=== PATIENT | female | born 1990 | race Caucasian/White ===

== ENCOUNTER 2017-04-28 21:27 | Emergency (ER) | payer BC, MEDICAID ==
[2017-04-28 23:29] LABS: APPEARANCE,URINE CLEAR; BILIRUBIN,URINE NEGATIVE (NEGATIVE); GLUCOSE, URINE NEGATIVE (NEGATIVE); KETONES,URINE NEGATIVE (NEGATIVE); LEUKOCYTE ESTERASE,URINE TRACE (NEGATIVE); NITRITE,URINE NEGATIVE (NEGATIVE); PROTEIN,URINE NEGATIVE (NEGATIVE); URINE SPECIFIC GRAVITY 1.011; UROBILINOGEN,URINE NEGATIVE mg/dL (<2.0)
[2017-04-28] MEDS ORDERED: KETOROLAC TROMETHAMINE INJ/PF 30 MG/1 ML SDV IM ONE (23:38)
--- NOTE | 2017-04-28 23:40 | ER Document Report ---
ED General - General Chief Complaint: Pelvic Pain Stated Complaint: ABDOMINAL PAIN Time Seen by Provider: 04/28/17 23:32 Notes: Patient is 27-year-old female presents with complaint of left ovary pain. She has left lower quadrant pain her abdomen radiates to her back. She has had this pain many times in the past and says it feels exactly like her ovarian cyst pain. She says she gets it frequently. She has had it on and off since she was 15 years old. Pain started earlier today around 4 PM. No fevers. No vomiting. No abnormal vaginal discharge or bleeding. She says she has had some mild loose stools. No watery stools. No blood in her stool. No fevers. No other complaints at this time. She says she is to follow with her cement mixer driver however she lost her insurance and therefore has not seen one in a while. TRAVEL OUTSIDE OF THE [place] IN LAST 30 DAYS: No - Related Data Allergies/Adverse Reactions: cefaclor [From [facility]] Allergy (Verified 04/21/15 10:39) Penicillins Allergy (Verified 04/21/15 10:38) Past Medical History - Social History Smoking Status: Unknown if Ever Smoked Frequency of alcohol use: None Drug Abuse: None Family History: Reviewed & Not Pertinent. denies: Arthritis, CAD, CVA, DM, Hyperlipidemia, Hypertension, Malignancy, Thyroid Disfunction Patient has suicidal ideation: No Patient has homicidal ideation: No Renal/ Medical History: Reports: Hx Ovarian Cysts - PCO S. Denies: Hx Peritoneal Dialysis Past Surgical History: Reports: Hx Tonsillectomy Review of Systems - Review of Systems Notes: My Normal Review Basic REVIEW OF SYSTEMS: CONSTITUTIONAL : Denies fever, chills, or sweats. Denies recent illness. RESPIRATORY: Denies cough, cold, or chest congestion. Denies shortness of breath, difficulty breathing, or wheezing. GASTROINTESTINAL: Left lower quadrant abdominal pain. Denies nausea, vomiting, or diarrhea. Denies constipation. Last BM: GENITOURINARY: Denies difficulty urinating, painful urination, burning, frequency, or blood in urine. FEMALE GENITOURINARY: Denies vaginal bleeding, abnormal or irregular periods. MUSCULOSKELETAL: Denies neck or back pain or joint pain or swelling. SKIN: Denies rash or skin lesions. NEUROLOGICAL: Denies altered mental status or loss of consciousness. Denies headache. Denies weakness or paralysis or loss of use of either side. Denies problems with gait or speech. Denies sensory or motor loss. ALL OTHER SYSTEMS REVIEWED AND NEGATIVE. Physical Exam - Vital signs Vitals: Temp Pulse Resp BP Pulse Ox 98 F 72 16 121/78 98 04/28/17 22:26 04/28/17 22:26 04/28/17 22:26 04/28/17 22:26 04/28/17 22:26 - Notes Notes: General Appearance: Well nourished, alert, cooperative, no acute distress, no obvious discomfort. Well-appearing. Vitals: reviewed, See vital signs table. Head: no swelling or tenderness to the head Eyes: PERRL, EOMI, Conjuctiva clear Mouth: No decreasd moisture Neck: Supple, no neck tenderness Lungs: No wheezing, No rales, No rhonci, No accessory muscle use, good air exchange bilaterally. Heart: Normal rate, Regular rythm, No murmur, no rub Abdomen: Normal BS, soft, No rigidity, left lower quadrant abdominal tenderness palpation, No guarding, Extremities: strength 5/5 in all extremities, good pulses in all extremities, no swelling or tenderness in the extremities, no edema. Skin: warm, dry, appropriate color, no rash Neuro: speech clear, oriented x 3, normal affect, responds appropriately to questions. Course - Re-evaluation Re-evalutation: 04/29/17 01:44 Patient is feeling much improved after pain medicine. They could not actually visualize the left ovary due to some overlying bowel gas. I do not suspect torsion and that the patient is not having intractable pain, she has had no vomiting, and the pain feels exactly like her previous typical ovarian cyst pain. Also patient never appeared to be in severe pain. I informed the patient that we will discharge home by encouraged her follow-up closely with her cement mixer driver for reevaluation. Informed her she should return to ER immediately if she has recurrent worsening pain, intractable pain, any vomiting , or if she has further concerns. Patient did mention some loose stools however I think diverticulitis is unlikely being that she is only 27 years old and has no previous history of any such thing and she has no fevers and her abdomen is very benign and minimally tender to palpation on exam. Dictation of this chart was performed using voice recognition software; therefore, there may be some unintended grammatical errors. - Vital Signs Vital signs: Temp Pulse Resp BP Pulse Ox 98 F 72 16 121/78 98 04/28/17 22:26 04/28/17 22:26 04/28/17 22:26 04/28/17 22:26 04/28/17 22:26 - Laboratory Laboratory results interpreted by me: 04/28/17 22:45 Ur Leukocyte Esterase TRACE H Discharge - Discharge Clinical Impression: Abdominal pain Qualifiers: Abdominal location: left lower quadrant Qualified Code(s): R10.32 - Left lower quadrant pain Condition: Good Disposition: HOME, SELF-CARE Additional Instructions: Please return to the ER immediately if you have wrosening pain, vomiting, fevers , watery diarrhea, or blood in your stool. Please follow up with Dr. Busby, Telephone Station Installer, for close follow up and continued workup due to your history of PCOS and recurrent pain from ovarian cysts. Do not take Motrin, Ibuprofen, Aleve , Naprosyn, or Aspirin when taking the prescribed medication Prescriptions: Ketorolac Tromethamine [Toradol 10 mg Tablet] 10 mg PO Q8HP PRN #12 tablet PRN Reason: Forms: Return to Work Referrals: TORRES BUSBY MD [ACTIVE STAFF] - Follow up in 3-5 days
--- NOTE | 2017-04-29 01:15 | RADIOLOGY REPORT (SQ) ---
EXAM DESCRIPTION: U/S NON OB PEL W/DOPPLER COMPLETED DATE/TIME: 04/29/2017 12:54 am REASON FOR STUDY: left adnexal pain, Hx ovarian cysts COMPARISON: Pelvic ultrasound 04/02/2011 TECHNIQUE: Grayscale images acquired of the pelvis via transvaginal approach and recorded on PACS. A dditional selected color Doppler and spectral images recorded. LIMITATIONS: Overlying bowel gas. FINDINGS: UTERUS: Measures 7.4 x 3.3 x 5.2 cm. No focal myometrial mass was seen. ENDOMETRIAL STRIPE: Measures 2.1 mm in double wall thickness. Intrauterine device is seen in the end ometrial canal. CERVIX: Measures 2.3 cm in length. RIGHT OVARY: Measures 3.6 x 2.3 x 2.2 cm. Flow by Doppler was shown to the right ovary. Small folli cles are noted. LEFT OVARY: Not visualized due to overlying bowel gas. FREE FLUID: None noted. IMPRESSION: Nonvisualized left ovary. Otherwise, unremarkable exam. TECHNICAL DOCUMENTATION: JOB ID: [id number] 2010 [employer]- All Rights Reserved
[2017-04-29 01:56] VITALS: BP 109/64
== END 2017-04-29 01:58 | disposition home or self-care (01) ==
LOC: ER 21:27
DX: R10.32 Left lower quadrant pain (principal); R10.2 Pelvic and perineal pain; M54.9 Dorsalgia, unspecified
CPT/HCPCS: 99284; 96372; 81025; 81001; 76856; 93976; J1885

== ENCOUNTER 2018-11-09 00:28 | Emergency (ER) | payer MEDICAID ==
[2018-11-09 00:54] VITALS: BP 149/78
[2018-11-09] MEDS ORDERED: IBUPROFEN 800 MG TABLET PO ONE (01:46)
[2018-11-09] MEDS ORDERED: CLINDAMYCIN HCL 150 MG CAPSULE PO ONE ×2 (01:46)
--- NOTE | 2018-11-09 01:59 | ER Document Report ---
HPI - HPI Patient complains to provider of: Toothache Time Seen by Provider: 11/09/18 01:46 Pain Level: 4 Context: She is a 28-year-old female presents to the emergency department for a toothache. Patient states this morning she bit into something hard and feels as though she may have broken her tooth. Patient states she noticed some redness and swelling around her gumline which presents her to the emergency room. Patient does exhibit slight swelling to the right lower jaw. Patient states she takes Suboxone daily, allergies to penicillin - REPRODUCTIVE LMP: 08/2018 Reproductive: DENIES: : Past Medical History - General Information source: Patient - Social History Smoking Status: Current Every Day Smoker Family History: Reviewed & Not Pertinent. denies: Arthritis, CAD, CVA, DM, Hyperlipidemia, Hypertension, Malignancy, Thyroid Disfunction Renal/ Medical History: Reports: Hx Ovarian Cysts - PCO S. Denies: Hx Peritoneal Dialysis Past Surgical History: Reports: Hx Gynecologic Surgery - D&C, Hx Tonsillectomy Vertical Provider Document - CONSTITUTIONAL Agree With Documented VS: Yes Notes: GENERAL: Alert, interacts well. No acute distress. HEAD: Normocephalic, atraumatic. EYES: Pupils equal, round, and reactive to light. Extraocular movements intact. ENT: Oral mucosa moist, tongue midline. Dentition is in poor repair, multiple dental caries throughout, multiple missing teeth. Tooth in question is #31, obviously fractured with decay noted. Gums do appear erythematous with a slight area of induration, no fluctuance noted. No Andrea's angina noted NECK: Full range of motion. Supple. Trachea midline. No lymphadenopathy appreciated LUNGS: Clear to auscultation bilaterally, no wheezes, rales, or rhonchi. No respiratory distress. HEART: Regular rate and rhythm. No murmur ABDOMEN: Soft, non-tender. Non-distended. Bowel sounds present in all 4 quadrants. EXTREMITIES: Moves all 4 extremities spontaneously. No edema, normal radial and dorsalis pedis pulses bilaterally. No cyanosis. BACK: no cervical, thoracic, lumbar midline tenderness. No saddle anesthesia, normal distal neurovascular exam. NEUROLOGICAL: Alert and oriented x3. Normal speech. cranial nerves II through XII grossly intact PSYCH: Normal affect, normal mood. SKIN: Warm, dry, normal turgor. No rashes or lesions noted. - INFECTION CONTROL TRAVEL OUTSIDE OF THE [place] IN LAST 30 DAYS: No Course - Re-evaluation Re-evalutation: 11/09/18 01:57 Patient was given a dose of clindamycin in the emergency room. Discussed continued use of antibiotics and following up with a dental [facility] eri maulik. Discussed close return precautions, patient afebrile, non-tachycardic, stable for discharge. - Vital Signs Vital signs: Temp Pulse Resp BP Pulse Ox 98.4 F 73 16 149/78 H 100 11/09/18 00:53 11/09/18 00:53 11/09/18 00:53 11/09/18 00:53 11/09/18 00:53 Discharge - Discharge Clinical Impression: Toothache, Dental caries Condition: Stable Disposition: HOME, SELF-CARE Instructions: Clindamycin ([facility]), [facility], Toothache ([facility]) Additional Instructions: As we discussed you have been seen and treated in the emergency department for a tooth infection. Please make sure taking antibiotics as prescribed. Please also make sure you are taking [id number] Tylenol alternated with Motrin. Please make sure you follow-up with the [facility] or your dentist of choice. Please return to the emergency room should you have any other concern symptoms. Prescriptions: Clindamycin HCl [Cleocin 150 mg Capsule] 450 mg PO Q8 7 Days capsule
== END 2018-11-09 02:33 | disposition home or self-care (01) ==
LOC: ER 00:28
DX: K08.89 Other specified disorders of teeth and supporting structures (principal); K02.9 Dental caries, unspecified; M79.89 Other specified soft tissue disorders; R68.84 Jaw pain; F17.200 Nicotine dependence, unspecified, uncomplicated; Z79.899 Other long term (current) drug therapy
CPT/HCPCS: 99282; J3490 ×2

== ENCOUNTER 2019-08-17 03:31 | Emergency (ER) | payer MEDICAID ==
[2019-08-17 04:13] VITALS: BP 136/65
[2019-08-17] MEDS ORDERED: CLINDAMYCIN HCL 150 MG CAPSULE PO ONE (04:17)
[2019-08-17] MEDS ORDERED: LIDOCAINE 2% VISCOUS SOLN 15 ML UDCUP PO ONE (04:17)
--- NOTE | 2019-08-17 04:22 | ER Document Report ---
HPI - HPI Time Seen by Provider: 08/17/19 03:33 Pain Level: 4 Notes: Patient is a 29-year-old female approx 19.5 weeks who presents to the ED complaining of left lower dental pain #17-18 x2 days. She has not noticed any obvious abscess or purulent discharge. Patient states that she is still able to eat and drink, but does have a decreased p.o. intake due to the pain. She has tried some [id number] meds with minimal relief. No other concerns or complaints. Pt is schedule with a dentist in 2 weeks. Denies any headache, fever, head injury, neck pain, hoarseness, drooling, URI, sore throat, chest pain, palpitations, syncope, cough, shortness of breath, wheeze, dyspnea, abdominal pain, nausea/vomiting/diarrhea, urinary retention, dysuria, hematuria, or rash. - ROS Systems Reviewed and Negative: Yes All other systems reviewed and negative - REPRODUCTIVE Reproductive: REPORTS: : Past Medical History - Social History Smoking Status: Current Every Day Smoker Chew tobacco use (# tins/day): No Frequency of alcohol use: None Drug Abuse: None Family History: Reviewed & Not Pertinent. denies: Arthritis, CAD, CVA, DM, Hyperlipidemia, Hypertension, Malignancy, Thyroid Disfunction Patient has suicidal ideation: No Patient has homicidal ideation: No Renal/ Medical History: Reports: Hx Ovarian Cysts - PCO S. Denies: Hx Peritoneal Dialysis Past Surgical History: Reports: Hx Gynecologic Surgery - D&C, Hx Tonsillectomy Vertical Provider Document - CONSTITUTIONAL Agree With Documented VS: Yes Notes: PHYSICAL EXAMINATION: GENERAL: Well-appearing, well-nourished and in no acute distress. HEAD: Atraumatic, normocephalic. EYES: Pupils equal round and reactive to light, extraocular movements intact, sclera anicteric, conjunctiva are normal. ENT: Nares patent and without discharge. oropharynx clear without exudates. No tonsilar hypertrophy or erythema. Moist mucous membranes. No sinus tenderness. Uvula midline. No palatine shift. No tongue protrusion. No respiratory compromise. Mouth: Poor dentition. + moderate decay and mild gingivitis. No obvious abscess or discharge noted. No facial swelling. + tenderness to tooth #17-18. NECK: Normal range of motion, supple without lymphadenopathy. No rigidity/meningismus. LUNGS: Breath sounds clear to auscultation bilaterally and equal. No wheezes rales or rhonchi. HEART: Regular rate and rhythm without murmurs, rubs, gallops. NEUROLOGICAL: Cranial nerves grossly intact. Normal speech, normal gait. Normal sensory, motor exams PSYCH: Normal mood, normal affect. SKIN: Warm, Dry, normal turgor, no rashes or lesions noted. - INFECTION CONTROL TRAVEL OUTSIDE OF THE [place] IN LAST 30 DAYS: No Course - Re-evaluation Re-evalutation: 08/17/19 04:20 Patient is an afebrile, well-hydrated, 29-year-old female who presents to the ED with dental pain, suspect nerve root etiology versus infection. Vitals are acceptable. PE is otherwise unremarkable. No I&D, labs, or imaging warranted at this time based on H&P. Viscous lidocaine dispensed today. I will send her home with a prescription for cleocin. Low suspicion for any meningitis, sepsis, peritonsillar/pharyngeal abscess, respiratory compromise, Andrea's, temporal arteritis, or other emergent systemic condition at this time. Patient is aware this condition can change from initial presentation and she needs to monitor symptoms closely. Conservative measures otherwise for symptoms. Call to schedule an appointment with a dentist for further evaluation and management. Recheck with your PCM this week as well. Return to the ED with any worsening/concerning symptoms otherwise as reviewed in discharge. Patient is in agreement. - Vital Signs Vital signs: Temp Pulse Resp BP Pulse Ox 98.2 F 69 17 136/65 H 97 08/17/19 04:09 08/17/19 04:09 08/17/19 04:09 08/17/19 04:09 08/17/19 04:09 Discharge - Discharge Clinical Impression: Pain, dental Condition: Stable Disposition: HOME, SELF-CARE Instructions: Clindamycin ([facility]), Toothache ([facility]) Additional Instructions: [facility] and floss twice daily Maintain fluid intake Take antibiotics as directed Mouthwash, salt water gargles, peroxide rinse as needed Tylenol as needed Recheck with PCM this week Keep appointment with dentist as scheduled Return to the ED with any worsening symptoms and/or development of fever, headache, facial swelling, swelling of lips/tongue/throat, trouble swallowing, drooling, hoarseness, neck pain/stiffness, chest pain, palpitations, syncope, shortness of breath, trouble breathing, abdominal pain, n/v/d, numbness/tingling, or other worsening symptoms that are concerning to you. Prescriptions: Clindamycin HCl 300 mg PO TID #30 capsule Forms: Elevated Blood Pressure Referrals: [facility] [Provider Group] - Follow up as needed
== END 2019-08-17 04:40 | disposition home or self-care (01) ==
LOC: ER 03:31
DX: O26.92 Pregnancy related conditions, unspecified, second trimester (principal); K08.9 Disorder of teeth and supporting structures, unspecified; O99.332 Smoking (tobacco) complicating pregnancy, second trimester; Z3A.19 19 weeks gestation of pregnancy
CPT/HCPCS: J3490 ×2

== ENCOUNTER 2020-01-13 18:01 | Inpatient (IN) | payer MEDICAID ==
[2020-01-13] MEDS ORDERED: DINOPROSTONE 10 MG VAGINAL INSERT.SR PV PRN (18:09)
[2020-01-13] MEDS ORDERED: OXYTOCIN/0.9 % SODIUM CHLORIDE 30 UNIT/500 ML RTUINJ IV PRN (18:09)
[2020-01-13] MEDS ORDERED: RINGERS SOLUTION,LACTATED 1,000 ML IV ONE (18:10)
[2020-01-13] MEDS ORDERED: VANCOMYCIN HCL 1,000 MG in DEXTROSE 5%-WATER 250 ML IV SCH (18:15)
[2020-01-13] MEDS ORDERED: OXYTOCIN 10 UNIT/ML VIAL ONE (18:40)
[2020-01-13] MEDS ORDERED: MISOPROSTOL 0.2 MG TABLET ONE (18:41)
[2020-01-13] MEDS ORDERED: OXYTOCIN/0.9 % SODIUM CHLORIDE 30 UNIT/500 ML RTUINJ ONE (18:41)
[2020-01-13] MEDS ORDERED: DINOPROSTONE 10 MG VAGINAL INSERT.SR ONE (18:41)
[2020-01-13] MEDS ORDERED: LIDOCAINE 1% INJ-PF (10 MG/ML) 30 ML SDV ONE (18:41)
[2020-01-13 18:46] LABS: URINE AMPHETAMINES SCREEN NEGATIVE; URINE BARBITURATES SCREEN NEGATIVE; URINE BENZODIAZEPINES SCREEN NEGATIVE; URINE COCAINE SCREEN NEGATIVE; URINE MARIJUANA (THC) SCREEN NEGATIVE; URINE METHADONE SCREEN NEGATIVE; URINE PHENCYCLIDINE SCREEN NEGATIVE
[2020-01-13] MEDS ORDERED: MISOPROSTOL 0.1 MG TABLET PV ONE (19:00)
--- NOTE | 2020-01-13 19:20 | Admission Physical ---
Datetime Report Generated by CPN: 01/13/2020 19:20 CURRENT ADMISSION Chief Complaint: Scheduled Induction of Labor Chief Complaint Other: IOL d/t 41.0 wks EGA -Post dates Good FM. NO regular ctx or VB Indication for Induction: Post Dates Admit Impression : Postterm, Intrauterine Admit Plan: Admit to Unit; Initiate Labor Induction Protocol ALLERGIES Medication Allergies: Yes Medication Allergies: Penicillins (01/13/2020); cefaclor (01/13/2020) Latex: No Latex Allergies OBSTETRICAL HISTORY EDC: 01/06/2020 00:00 : 3 Para: 2 Term: 1 : 1 SAB: 0 IAB: 0 Ectopic: 0 Livin Cesareans: 0 VBACs: 0 Multiple Births: 0 Gestational Diabetes: No Rh Sensitization: No Incompetent Cervix: No DAVID: No Infertility: No ART Treatment: No Uterine Anomaly: No IUGR: No Hx Previous C/S: No Macrosomia: No Hx Loss/Stillborn: No PIH: No Hx : No Placenta Previa/Abruption: No Depression/PP Depression: No PTL/PROM: No Post Hemorrhage: No Current Procedures: Ultrasound; NST Obstetrical History Comments: G1 - 2013 - G2 - 2014 - Full Term G3 - Current SEE RECORDS Alcohol: No Marijuana : No Cocaine: No Other Illicit Drugs: No Cigarettes: Current Everyday Smoker. [id number] MEDICAL HISTORY Diabetes: No Blood Transfusion: No Pulmonary Disease (Asthma, TB): No Breast Disease: No Hypertension: No Food Services Coordinator Surgery: No Heart Disease: No Hosp/Surgery: Yes Autoimmune Disorder: No Anesthetic Complications: No Kidney Disease: No Abnormal Pap Smear: No Neuro/Epilepsy: No Psychiatric Disorders: No Other Medical Diseases: No Hepatitis/Liver Disease: No Significant Family History: No Varicosities/Phlebitis: No Trauma/Violence : No Thyroid Dysfunction: No Medical History Comments: Laproscopy, D_C INFECTIOUS HISTORY Gonorrhea: No Genital Herpes: No Chlamydia: No Tuberculosis: No Syphilis: No Hepatitis: No HIV/AIDS Exposure: No Rash or Viral Illness: No HPV: No PHYSICAL EXAM General: Normal HEENT: Normal Neurologic: Normal Thyroid: Normal Heart: Normal Lungs: Normal Breast: Normal Back: Normal Abdomen: Normal Genitourinary Exam: Normal Extremities: Normal DTRs: Normal Pelvic Type: Adequate Vital Signs: Reviewed; Within Normal Limits VAGINAL EXAM Dilatation: 2 Effacement: 50 Station: -2 Contraction Comments: no regular contractions MEMBRANES Membranes: Intact FETUS A EGA: 41.0 Monitoring: External US FHR- Baseline: 120 Variability: Moderate 6-25bpm Accelerations: 15X15 Decelerations: None FHR Category: Category I Presentation: Vertex Admit Comment: at 41.0 weeks EGA for IOL due post dates -Admit to LDR -CEFM and toco -NPO and IVFs; LR at 125cc/hr after 1 liter bolus of LR -GBS pos and PCN allergic: Vancomycin -Hx of two prior , anticipate -Desires epidural when indicated for pain: substance dependent on Subutex 8mg BID PLANS FOR LABOR AND DELIVERY Labor and Delivery: None Pain Management: Epidural Feeding Preference: Formula Benefit of Breast Feed Discussed: Yes Circumcision: N/A INFORMED CONSENT Informed Consent Obtained: Vaginal Delivery; Risks, Benefits and Alternatives Discussed Signature: with User ID: Jennifer : with User ID: Jennifer
[2020-01-13 19:22] LABS: ABSOLUTE EOSINOPHILS # (AUTO) 0.1 10^3/uL (0.0-0.6); ABSOLUTE LYMPHOCYTES (AUTO) 1.8 10^3/uL (0.5-4.7); ABSOLUTE MONOCYTES (AUTO) 0.7 10^3/uL (0.1-1.4); ABSOLUTE NEUT (AUTO) 10.6 10^3/uL (1.7-8.2); BASOPHILS % (AUTO) 0.2 % (0-2); EOSINOPHILS % (AUTO) 0.9 % (0-6); HEMATOCRIT 30.3 % (36.0-47.0); HEMOGLOBIN 10.5 g/dL (12.0-15.5); LYMPHOCYTES % (AUTO) 13.4 % (13-45); MEAN CORPUSCULAR HEMOGLOBIN 30.8 pg (27.0-33.4); MEAN CORPUSCULAR HGB CONC 34.6 g/dL (32.0-36.0); MEAN CORPUSCULAR VOLUME 89 fl (80-97); MONOCYTES % (AUTO) 5.6 % (3-13); PLATELET COUNT 174 10^3/uL (150-450); RED CELL DISTRIBUTION WIDTH 13.1 % (11.5-14.0); SEGMENTED NEUTROPHILS % (AUTO) 79.9 % (42-78); TOTAL CELLS COUNTED % (AUTO) 100 %; WHITE BLOOD COUNT 13.3 10^3/uL (4.0-10.5)
[2020-01-13] MEDS ORDERED: MISOPROSTOL 0.1 MG TABLET ONE (19:25)
[2020-01-13 19:39] LABS: APPEARANCE,URINE CLOUDY; BILIRUBIN,URINE NEGATIVE (NEGATIVE); COLOR,URINE AMBER; GLUCOSE, URINE NEGATIVE (NEGATIVE); KETONES,URINE NEGATIVE (NEGATIVE); LEUKOCYTE ESTERASE,URINE NEGATIVE (NEGATIVE); NITRITE,URINE NEGATIVE (NEGATIVE); PROTEIN,URINE 30 mg/dL (NEGATIVE); URINE SPECIFIC GRAVITY 1.019
[2020-01-13] MEDS: VANCOMYCIN HCL INJ 1000 MG VIAL IV SCH (19:49)
[2020-01-14] MEDS ORDERED: VANCOMYCIN HCL 1,000 MG in DEXTROSE 5%-WATER 250 ML IV SCH ×2
[2020-01-14] MEDS ORDERED: NALBUPHINE HCL INJ 10 MG/1 ML AMPULE INJ ONE (03:36)
[2020-01-14] MEDS ORDERED: PROMETHAZINE HCL INJ 25 MG/1 ML VIAL IV ONE (03:37)
[2020-01-14] MEDS ORDERED: NALBUPHINE HCL INJ 10 MG/1 ML AMPULE ONE (03:39)
[2020-01-14] MEDS ORDERED: PROMETHAZINE HCL INJ 25 MG/1 ML VIAL ONE (03:39)
[2020-01-14] MEDS ORDERED: EPHEDRINE SULFATE INJ 50 MG/1 ML AMPULE ONE (05:07)
[2020-01-14] MEDS ORDERED: FENTANYL CITRATE INJ/PF 100 MCG/2 ML AMPUL ONE (05:08)
[2020-01-14] MEDS ORDERED: BUPIVACAINE HCL 0.25 % INJ/PF (2.5 MG/1 ML) 30 ML VIAL ONE (05:08)
[2020-01-14] MEDS ORDERED: FENTANYL/BUPIVACAINE/NS/PF 0 MCG/0 ML RTUINJ EPI ONE (05:08)
[2020-01-14] MEDS ORDERED: GLYCERIN/WITCH HAZEL LEAF 1 EACH MED..WIPE TP PRN (06:46)
[2020-01-14] MEDS ORDERED: ACETAMINOPHEN 650 MG SUPP.RECT PR PRN (06:46)
[2020-01-14] MEDS ORDERED: DIPHENHYDRAMINE HCL 25 MG CAPSULE PO PRN (06:46)
[2020-01-14] MEDS ORDERED: MEASLES,MUMPS&RUBELLA VACC/PF 0.5 ML VIAL SUBCUT PRN (06:46)
[2020-01-14] MEDS ORDERED: OXYTOCIN/0.9 % SODIUM CHLORIDE 30 UNIT/500 ML RTUINJ IV PRN (06:46)
[2020-01-14] MEDS ORDERED: ACETAMINOPHEN WITH CODEINE #3 TABLET PO PRN ×2 (06:46)
[2020-01-14] MEDS ORDERED: PROMETHAZINE HCL 25 MG TABLET PO PRN (06:46)
[2020-01-14] MEDS ORDERED: PROMETHAZINE HCL 25 MG SUPP.RECT PR PRN (06:46)
[2020-01-14] MEDS ORDERED: NA PHOS,M-B/NA PHOS,DI-BA (ADULT) 133 ML ENEMA PR PRN (06:46)
[2020-01-14] MEDS ORDERED: PROMETHAZINE HCL INJ 25 MG/1 ML VIAL IV PRN (06:46)
[2020-01-14] MEDS ORDERED: DIPH/PERTUSS(ACELL)/TETANUS VAC/PF 0.5 ML SYR (>=10YO) IM PRN (06:46)
[2020-01-14] MEDS ORDERED: ZOLPIDEM TARTRATE 5 MG TABLET PO PRN (06:46)
[2020-01-14] MEDS ORDERED: MAGNESIUM HYDROXIDE SUSP 30 ML UDCUP PO PRN (06:46)
[2020-01-14] MEDS ORDERED: PSEUDOEPHEDRINE HCL 30 MG TABLET PO PRN (06:46)
[2020-01-14] MEDS ORDERED: BENZOCAINE/MENTHOL AEROSOL SPRAY 56 ML TOP PRN (06:46)
[2020-01-14] MEDS ORDERED: DIBUCAINE 1% OINTMENT 28 GM TP PRN (06:46)
--- NOTE | 2020-01-14 07:15 | Delivery Summary ---
Del Sum A-C Datetime Report Generated by CPN: 01/14/2020 07:15 DELIVERY PERSONNEL DELIVERY PERSONNEL: [id number] Delivery Doctor:: Ana Black MD Labor and Delivery Nurse:: Carter Miranda RNcanvas goods fabricator Nurse:: Ban Younger RN Percussion Welding Machine Operator:: Monserrat Pritchett RN [place] Gatherer/PATTERN DRUM MAKER: Katia Patricia, ST MATERNAL INFORMATION Delivery Anesthesia: Epidural Medications After Delivery: Pitocin 30 Units in 500ml NS/D5W Estimated Blood Loss (ml): 200 Delivery QBL: 200 Maternal Complications: None Provider Comments: Called to patients room for delivery as she was complete and +3 with urge to push. Pushed through one contraction and viable female was delivered from vertex presention over an intact perineum. Had nuchal x2 that was delivered through. Cord clamping delayed for 30 seconds as was vigorous. After cord clamping infant was placed skin to skin with Mother. Both and Mother stable. LABOR SUMMARY EDC: 01/06/2020 00:00 No. Babies in Womb: 1 Attempted: No Labor Anesthesia: Epidural LABOR INFORMATION Reason for Induction: Post Dates Onset of Labor: 01/14/2020 05:37 Complete Dilatation: 01/14/2020 06:06 Cervical Ripening Agents: Cytotec @ Oxytocin: Induction Group B Beta Strep: positive Antibiotics # of Doses: 1 Antibiotics Time of Last Dose: 1948 Name of Antibiotic Given: Vancomycin Steroids Given: None Reason Steroids Not Administered: Not Applicable MEMBRANES Membranes Rupture Method: Spontaneous Rupture of Membranes: 01/14/2020 05:02 Length of Rupture (hr): 1.13 Amniotic Fluid Color: Clear Amniotic Fluid Amount: Scant Amniotic Fluid Odor: Normal STAGES OF LABOR Stage 1 hr: 0 Stage 1 min: 29 Stage 2 hr: 0 Stage 2 min: 4 Stage 3 hr: 0 Stage 3 min: 7 Total Time in Labor hr: 0 Total Time in Labor min: 40 VAGINAL DELIVERY Episiotomy: None Other Laceration: left labial laceration which was small and hemostatic Laceration Repair: Not Applicable Sponge Count Correct: Yes Sharps Count Correct: Yes CSECTION DELIVERY Primary Indication: N/A Secondary Indication: N/A CSection Incidence: N/A Labor: N/A Elective: N/A CSection Incision: N/A BABY A INFORMATION Delivery Date/Time: 01/14/2020 06:10 Method of Delivery: Vaginal Nurse Controlled Delivery: No Born in Route : No : N/A Forceps: N/A Vacuum Extraction: N/A Shoulder Dystocia : No PRESENTATION/POSITION BABY A Presentation: Cephalic Cephalic Presentation: Vertex Vertex Position: Left Occipital Anterior Breech Presentation: N/A PLACENTA INFORMATION BABY A Placenta Delivery Time : 01/14/2020 06:17 Placenta Method of Delivery: Spontaneous Placenta Status: Delivered SCORES BABY A Heart Rate 1 min: >100 bpm Resp Effort 1 min: Good Cry Reflex Irritability 1 min: Cough or Sneeze or Pulls Away Muscle Tone 1 min: Active Motion Color 1 min: Body [place], Extremities Blue Resuscitation Effort 1 min: Tactile Stimulation SCORE 1 MIN: 9 Heart Rate 5 min: >100 bpm Resp Effort 5 min: Good Cry Reflex Irritability 5 min: Cough or Sneeze or Pulls Away Muscle Tone 5 min: Active Motion Color 5 min: Body [place], Extremities Blue Resuscitation Effort 5 min: Tactile Stimulation SCORE 5 MIN: 9 INFORMATION BABY A Gestational Age at Delivery: 41.1 Gestational Status: Late Term- 41- 41.6 Weeks Infant Outcome : Liveborn Condition : Stable Sex: Female IDENTIFICATION BABY A Infant Verification Date/Time: 01/14/2020 06:31 ID Band Number: [id number] Mother's Name Verified: Yes RN Verifying : K Ruben, RN Additional Verifying Personnel: S Maninder, RN WEIGHT/LENGTH BABY A Infant Birthweight (gm): 3376 Infant Weight (lb): 7 Weight (oz): 7 Length (in): 20.00 Infant Length (cm): 50.80 CORD INFORMATION BABY A No. Cord Vessels: 3 Nuchal Cord : Around Neck x2, Loose Cord Blood Taken: Yes-For Eval (Mom's Blood Type - or O+) Suction: None; Mouth ASSESSMENT BABY A Infant Complications: None Physical Findings at Delivery: Within Normal Limits Infant Respirations: Appears Normal Skin to Skin: Yes Skin to Skin Time (min): 60 Transferred To: Remains with Mother SIGNATURES Signature: with User ID: Jennifer : with User ID: Jennifer
[2020-01-14] MEDS ORDERED: IBUPROFEN 800 MG TABLET ONE (07:20)
[2020-01-14] MEDS: IBUPROFEN 800 MG TABLET PO SCH ×3 (07:32→22:23)
[2020-01-14] MEDS: VANCOMYCIN HCL INJ 1000 MG VIAL IV SCH (08:52)
[2020-01-14] MEDS: FERROUS SULFATE 325 MG TABLET PO SCH ×2 (10:37→17:41)
[2020-01-14] MEDS: FAMOTIDINE 20 MG TABLET PO SCH ×2 (10:37→22:23)
[2020-01-14] MEDS: PRENATAL VITAMIN W DHA CAPSULE PO SCH (10:37)
[2020-01-14] MEDS: DOCUSATE SODIUM 100 MG CAPSULE PO SCH ×2 (10:37→17:41)
[2020-01-14] MEDS: SENNOSIDES/DOCUSATE 8.6-50 MG 1 EACH TABLET PO SCH (10:37)
[2020-01-15] MEDS: IBUPROFEN 800 MG TABLET PO SCH ×3 (05:50→21:58)
[2020-01-15 06:44] LABS: HEMATOCRIT 29.6 % (36.0-47.0); HEMOGLOBIN 10.3 g/dL (12.0-15.5); MEAN CORPUSCULAR HEMOGLOBIN 30.9 pg (27.0-33.4); MEAN CORPUSCULAR HGB CONC 34.7 g/dL (32.0-36.0); MEAN CORPUSCULAR VOLUME 89 fl (80-97); PLATELET COUNT 183 10^3/uL (150-450); RED BLOOD COUNT 3.32 10^6/uL (3.72-5.28); RED CELL DISTRIBUTION WIDTH 13.3 % (11.5-14.0); WHITE BLOOD COUNT 10.7 10^3/uL (4.0-10.5)
[2020-01-15] MEDS: FERROUS SULFATE 325 MG TABLET PO SCH ×2 (10:38→17:01)
[2020-01-15] MEDS: PRENATAL VITAMIN W DHA CAPSULE PO SCH (10:38)
[2020-01-15] MEDS: DOCUSATE SODIUM 100 MG CAPSULE PO SCH (10:39)
[2020-01-15] MEDS: SENNOSIDES/DOCUSATE 8.6-50 MG 1 EACH TABLET PO SCH (10:39)
[2020-01-15] MEDS: FAMOTIDINE 20 MG TABLET PO SCH ×2 (10:39→21:58)
--- NOTE | 2020-01-15 10:48 | PDOC PROGRESS REPORT ---
Subjective-OB Progress Note for:: 01/15/20 Subjective: Pt doing well, no concerns. Reports light bleeding, reg diet, and voiding without difficulty. Physical Exam (OB) Vital Signs: Temp Pulse Resp BP Pulse Ox 97.5 F 69 18 132/82 H 100 01/15/20 08:08 01/15/20 08:08 01/15/20 08:08 01/15/20 08:08 01/15/20 08:08 Intake & Output 01/14/20 01/15/20 01/16/20 06:59 06:59 06:59 Intake Total 550 Balance 550 Weight 100.7 kg - PIH/Pre-Eclampsia Headache: Absent Epigastric Pain: No Visual Changes: No - Lochia Lochia Amount: Scant < 10 ml Lochia Color: Rubra/Red - Abdomen Description: Soft, Round Hernia Present: No Fundal Description: Firm, Midline Fundal Height: u/u - u/2 Objective-Diagnostic Laboratory: 01/15/20 06:20 01/15/20 01/15/20 06:20 06:20 WBC 10.7 H RBC 3.32 L Hgb 10.3 L Hct 29.6 L MCV 89 MCH 30.9 MCHC 34.7 RDW 13.3 Plt Count 183 Blood Type A NEGATIVE Assessment and Plan(PN) - Assessment and Plan (1) Vaginal delivery Is this a current diagnosis for this admission?: Yes - Time Spent with Patient Time with patient: Less than 15 minutes Medications reviewed and adjusted accordingly: Yes - Disposition Anticipated Discharge: Home Within: within 24 hours
[2020-01-16] MEDS: IBUPROFEN 800 MG TABLET PO SCH ×2 (06:04→13:40)
[2020-01-16 07:56] VITALS: BP 122/73
[2020-01-16] MEDS: PRENATAL VITAMIN W DHA CAPSULE PO SCH (09:26)
[2020-01-16] MEDS: DOCUSATE SODIUM 100 MG CAPSULE PO SCH (09:26)
[2020-01-16] MEDS: SENNOSIDES/DOCUSATE 8.6-50 MG 1 EACH TABLET PO SCH (09:26)
[2020-01-16] MEDS: FERROUS SULFATE 325 MG TABLET PO SCH (09:26)
[2020-01-16] MEDS: FAMOTIDINE 20 MG TABLET PO SCH (09:26)
--- NOTE | 2020-01-16 11:27 | PDOC DISCHARGE SUMMARY ---
Impression - Admit/DC Date/PCP Admission Date/Primary Care Provider: 01/13/20 18:01 Discharge Date: 01/16/20 - Discharge Diagnosis (1) Vaginal delivery Is this a current diagnosis for this admission?: Yes - Additional Information Resuscitation Status: Full Code Discharge Diet: Regular Discharge Activity: Balance Activity w/Rest, Pelvic Rest Prescriptions: Ibuprofen [Motrin 800 mg Tablet] 800 mg PO Q8HP PRN #60 tablet PRN Reason: Home Medications: Buprenorphine HCl [Subutex 2 mg Sl Tablet] 8 mg SL BID 01/13/20 Pnv No.95/Ferrous Fum/Folic AC [ Caplet] 1 tab PO DAILY 01/13/20 Ibuprofen [Motrin 800 mg Tablet] 800 mg PO Q8HP PRN #60 tablet 01/15/20 HPI Reason(s) for Admission: Induction of Labor Procedures: NST Intrapartum Procedure(s): Spontaneous Vaginal Delivery Complication(s): Laceration-Labial Laceration-Degree: 1st Results Laboratory Results: WBC 10.7 10^3/uL (4.0-10.5) H 01/15/20 06:20 RBC 3.32 10^6/uL (3.72-5.28) L 01/15/20 06:20 Hgb 10.3 g/dL (12.0-15.5) L 01/15/20 06:20 Hct 29.6 % (36.0-47.0) L 01/15/20 06:20 MCV 89 fl (80-97) 01/15/20 06:20 MCH 30.9 pg (27.0-33.4) 01/15/20 06:20 MCHC 34.7 g/dL (32.0-36.0) 01/15/20 06:20 RDW 13.3 % (11.5-14.0) 01/15/20 06:20 Plt Count 183 10^3/uL (150-450) 01/15/20 06:20 Lymph % (Auto) 13.4 % (13-45) 01/13/20 19:08 Green % (Auto) 5.6 % (3-13) 01/13/20 19:08 Eos % (Auto) 0.9 % (0-6) 01/13/20 19:08 Baso % (Auto) 0.2 % (0-2) 01/13/20 19:08 Absolute Neuts (auto) 10.6 10^3/uL (1.7-8.2) H 01/13/20 19:08 Absolute Lymphs (auto) 1.8 10^3/uL (0.5-4.7) 01/13/20 19:08 Absolute Monos (auto) 0.7 10^3/uL (0.1-1.4) 01/13/20 19:08 Absolute Eos (auto) 0.1 10^3/uL (0.0-0.6) 01/13/20 19:08 Absolute Basos (auto) 0.0 10^3/uL (0.0-0.2) 01/13/20 19:08 Seg Neutrophils % 79.9 % (42-78) H 01/13/20 19:08 Urine Color VANNESSA 01/13/20 18:13 Urine Appearance CLOUDY 01/13/20 18:13 Urine pH 8.0 (5.0-9.0) 01/13/20 18:13 Ur Specific [place] 1.019 01/13/20 18:13 Urine Protein 30 mg/dL (NEGATIVE) H 01/13/20 18:13 Urine Glucose (UA) NEGATIVE mg/dL (NEGATIVE) 01/13/20 18:13 Urine Ketones NEGATIVE mg/dL (NEGATIVE) 01/13/20 18:13 Urine Blood NEGATIVE (NEGATIVE) 01/13/20 18:13 Urine Nitrite NEGATIVE (NEGATIVE) 01/13/20 18:13 Urine Bilirubin NEGATIVE (NEGATIVE) 01/13/20 18:13 Urine Urobilinogen 2.0 mg/dL (<2.0) H 01/13/20 18:13 Ur Leukocyte Esterase NEGATIVE (NEGATIVE) 01/13/20 18:13 Urine Ascorbic Acid NEGATIVE (NEGATIVE) 01/13/20 18:13 Urine Opiates Screen NEGATIVE 01/13/20 18:13 Urine Methadone Screen NEGATIVE 01/13/20 18:13 Ur Barbiturates Screen NEGATIVE 01/13/20 18:13 Ur Phencyclidine Scrn NEGATIVE 01/13/20 18:13 Ur Amphetamines Screen NEGATIVE 01/13/20 18:13 U Benzodiazepines Scrn NEGATIVE 01/13/20 18:13 Urine Cocaine Screen NEGATIVE 01/13/20 18:13 U Marijuana (THC) Screen NEGATIVE 01/13/20 18:13 RPR NONREACTIVE (NONREACTIVE) 01/13/20 19:08 Blood Type A NEGATIVE 01/15/20 06:20 Antibody Screen NEGATIVE 01/13/20 19:08 Screen NEGATIVE 01/15/20 06:20 Plan Plan of Treatment: f/u at [facility] for PPCK 4 weeks Time Spent: Less than 30 Minutes
== END 2020-01-16 16:32 | disposition home or self-care (01) | DRG 807 ==
LOC: LR 18:01 → 2S 01-14 08:22
PROVIDERS: ADMIT Obstetrics & Gynecology; ATTEND Obstetrics & Gynecology
PROC: 10E0XZZ Delivery of Products of Conception, External Approach (ICD-10-PCS; principal; 2020-01-14)
PROC: 3E0234Z Introduction of Serum, Toxoid and Vaccine into Muscle, Percutaneous Approach (ICD-10-PCS; 2020-01-15)
DX: O48.0 Post-term pregnancy (principal); Z37.0 Single live birth; O99.824 Streptococcus B carrier state complicating childbirth; O69.81X0 Labor and delivery complicated by cord around neck, without compression, not applicable or unspecified; O26.893 Other specified pregnancy related conditions, third trimester; O70.0 First degree perineal laceration during delivery; O99.334 Smoking (tobacco) complicating childbirth; F17.210 Nicotine dependence, cigarettes, uncomplicated; Z67.11 Type A blood, Rh negative; Z3A.41 41 weeks gestation of pregnancy
CPT/HCPCS: 1967; 36415; 80307; 81005; 85025; 85027; 85461; 86592; 86850; 86900; 86901; J2300; J2550; J2590; J2790; J3010; J3370; J3490; J7060

== ENCOUNTER 2020-05-14 10:26 | Emergency (ER) | payer MEDICAID ==
[2020-05-14] MEDS ORDERED: ONDANSETRON HCL INJ/PF 4 MG/2 ML SDV IV ONE (11:02)
--- NOTE | 2020-05-14 11:03 | ER Document Report ---
ED Medical Screen (RME) - General Chief Complaint: Upper Abdominal Pain Stated Complaint: ABDOMINAL PAIN/BACK PAIN Time Seen by Provider: 05/14/20 10:55 Mode of Arrival: Ambulatory Information source: Patient Notes: Otherwise healthy 30-year-old female presents emergency department chief complaint of upper abdomen, epigastric and right upper quadrant abdominal pain. She reports pain wraps around to the right side of her back. She reports associated nausea. She states the pain started about 4 months ago after she had a baby. She denies any fever or chills. Denies any known sick contacts. Denies any exposure to Covid. She still has her gallbladder. Tenderness in the right upper quadrant, exam limited due to seated position in triage. I have greeted and performed a rapid initial assessment of this patient. A comprehensive ED assessment and evaluation of the patient, analysis of test results and completion of the medical decision making process will be conducted by additional ED providers. I have specifically instructed the patient or family members with the patient to immediately return to any nursing staff should anything change in the patient's condition or with their chief complaint. TRAVEL OUTSIDE OF THE [place] IN LAST 30 DAYS: No - Related Data Allergies/Adverse Reactions: cefaclor [From Ceclor] Allergy (Verified 05/14/20 11:02) Penicillins Allergy (Verified 05/14/20 11:02) Home Medications: subutex Past Medical History - Social History Chew tobacco use (# tins/day): No Frequency of alcohol use: None Drug Abuse: None Renal/ Medical History: Reports: Hx Ovarian Cysts - PCO S. Denies: Hx Peritoneal Dialysis Past Surgical History: Reports: Hx Gynecologic Surgery - D&C, Hx Tonsillectomy Physical Exam - Vital signs Vitals: Temp Pulse Resp BP Pulse Ox 98.5 F 70 16 129/69 H 99 05/14/20 10:37 05/14/20 10:37 05/14/20 10:37 05/14/20 10:37 05/14/20 10:37 Course - Vital Signs Vital signs: Temp Pulse Resp BP Pulse Ox 98.5 F 70 16 129/69 H 99 05/14/20 10:59 05/14/20 10:37 05/14/20 10:37 05/14/20 10:37 05/14/20 10:37
[2020-05-14 11:44] LABS: ABSOLUTE EOSINOPHILS # (AUTO) 0.1 10^3/uL (0.0-0.6); ABSOLUTE LYMPHOCYTES (AUTO) 1.8 10^3/uL (0.5-4.7); ABSOLUTE MONOCYTES (AUTO) 0.7 10^3/uL (0.1-1.4); ABSOLUTE NEUT (AUTO) 8.1 10^3/uL (1.7-8.2); BASOPHILS % (AUTO) 0.2 % (0-2); EOSINOPHILS % (AUTO) 1.3 % (0-6); HEMATOCRIT 37.6 % (36.0-47.0); HEMOGLOBIN 13.5 g/dL (12.0-15.5); LYMPHOCYTES % (AUTO) 16.7 % (13-45); MEAN CORPUSCULAR HEMOGLOBIN 30.5 pg (27.0-33.4); MEAN CORPUSCULAR HGB CONC 35.9 g/dL (32.0-36.0); MEAN CORPUSCULAR VOLUME 85 fl (80-97); MONOCYTES % (AUTO) 6.9 % (3-13); PLATELET COUNT 180 10^3/uL (150-450); RED BLOOD COUNT 4.44 10^6/uL (3.72-5.28); RED CELL DISTRIBUTION WIDTH 13.7 % (11.5-14.0); SEGMENTED NEUTROPHILS % (AUTO) 74.9 % (42-78); TOTAL CELLS COUNTED % (AUTO) 100 %; WHITE BLOOD COUNT 10.8 10^3/uL (4.0-10.5)
[2020-05-14 12:03] LABS: APPEARANCE,URINE SLIGHTLY-CLOUDY; BILIRUBIN,URINE NEGATIVE (NEGATIVE); COLOR,URINE YELLOW; GLUCOSE, URINE NEGATIVE (NEGATIVE); KETONES,URINE NEGATIVE (NEGATIVE); LEUKOCYTE ESTERASE,URINE TRACE (NEGATIVE); NITRITE,URINE NEGATIVE (NEGATIVE); PROTEIN,URINE NEGATIVE (NEGATIVE); URINE SPECIFIC GRAVITY 1.024
[2020-05-14 12:07] LABS: ALBUMIN 4.5 g/dL (3.5-5.0); ALKALINE PHOSPHATASE 72 U/L (38-126); ANION GAP 10 (5-19); ASPARTATE AMINO TRANSFERASE 128 U/L (14-36); BILIRUBIN,DIRECT 0.2 mg/dL (0.0-0.4); BILIRUBIN,TOTAL 0.4 mg/dL (0.2-1.3); BLOOD UREA NITROGEN 12 mg/dL (7-20); CALCIUM 9.7 mg/dL (8.4-10.2); CARBON DIOXIDE 25 mmol/L (22-30); CHLORIDE 105 mmol/L (98-107); GLUCOSE 104 mg/dL (75-110)
[2020-05-14] MEDS ORDERED: LIDOCAINE 2% VISCOUS SOLN 15 ML UDCUP PO ONE (12:08)
[2020-05-14] MEDS ORDERED: MAG HYDROX/AL HYDROX/SIMETH SUSP 30 ML UDCUP PO ONE (12:08)
[2020-05-14] MEDS ORDERED: KETOROLAC TROMETHAMINE INJ/PF 30 MG/1 ML SDV IV ONE (12:08)
--- NOTE | 2020-05-14 13:35 | ER Document Report ---
Entered by JAXON CRUZ SCRIBE 05/14/20 1241 Acting as scribe for:MARINA BURLESON MD ED GI/ - General Chief Complaint: Upper Abdominal Pain Stated Complaint: ABDOMINAL PAIN/BACK PAIN Time Seen by Provider: 05/14/20 10:55 Mode of Arrival: Ambulatory Information source: Patient Notes: This 30 year old female patient presents to the emergency department today with complaints of upper abdominal pain that radiates to her back since 9:00 AM this morning. She mentions that she has had this pain three other times in the past. She is nauseated today but has not vomited, mentioning that every other time she has vomited in the past. Patient states that in the past when this pain begins she has taken nausea medicine and tried to sleep it off but has never been wor ked up for it. Patient is on Subutex for opioid dependency developed after narcotic prescriptions for PCOS. She currently takes Subutex 8 mg twice daily. Her last dose was today was at 3:00AM before going into work. TRAVEL OUTSIDE OF THE [place] IN LAST 30 DAYS: No - Related Data Allergies/Adverse Reactions: [facility] Allergy (Verified 05/14/20 11:31) Penicillins Allergy (Verified 05/14/20 11:31) Home Medications: subutex Past Medical History - General Information source: Patient - Social History Smoking Status: Current Every Day Smoker Cigarette use (# per day): Yes - 1/2 ppd Chew tobacco use (# tins/day): No Frequency of alcohol use: None Drug Abuse: None Lives with: Family Family History: Reviewed & Not Pertinent Patient has homicidal ideation: No Renal/ Medical History: Reports: Hx Ovarian Cysts - PCOS Past Surgical History: Reports: Hx Gynecologic Surgery - D&C, Hx Tonsillectomy, Other - Lap for PCOS Review of Systems - Review of Systems Constitutional: No symptoms reported EENT: No symptoms reported Cardiovascular: No symptoms reported Respiratory: No symptoms reported Gastrointestinal: See HPI, Abdominal pain, Nausea. denies: Vomiting Genitourinary: No symptoms reported Female Genitourinary: See HPI, Irregular period - PCOS, 03/27 LMP Musculoskeletal: No symptoms reported Skin: No symptoms reported Hematologic/Lymphatic: No symptoms reported Neurological/Psychological: No symptoms reported -: Yes All other systems reviewed and negative Physical Exam - Vital signs Vitals: Temp Pulse Resp BP Pulse Ox 98.5 F 70 16 129/69 H 99 05/14/20 10:37 05/14/20 10:37 05/14/20 10:37 05/14/20 10:37 05/14/20 10:37 - Notes Notes: Physical Exam: General: Alert, appears well. HEENT: Normocephalic. Atraumatic. PERRL. Extraocular movements intact. Oropharynx clear. Neck: Supple. Non-tender. Respiratory: No respiratory distress. Clear and equal breath sounds bilaterally. Cardiovascular: Regular rate and rhythm. Abdominal: Obese. Epigastric and mild RUQ tenderness to palpation. No distension. Normal Bowel Sounds. Back: No gross abnormalities. Extremities: Moves all four extremities. Upper extremities: Normal inspection. Normal ROM. Lower extremities: Normal inspection. No edema. Normal ROM. Neurological: Normal cognition. AAOx4. Normal speech. Psychological: Normal affect. Normal Mood. Skin: Warm. Dry. Normal color. Course - Vital Signs Vital signs: Temp Pulse Resp BP Pulse Ox 98.5 F 70 20 128/64 H 99 05/14/20 10:59 05/14/20 14:34 05/14/20 14:34 05/14/20 14:34 05/14/20 14:34 - Laboratory Result Diagrams: 05/14/20 11:25 05/14/20 11:25 Laboratory results interpreted by me: 05/14/20 05/14/20 05/14/20 11:25 11:25 11:25 WBC 10.8 H AST 128 H ALT 128 H Urine Urobilinogen 2.0 H Ur Leukocyte Esterase TRACE H - Diagnostic Test Radiology reviewed: Image reviewed, Reports reviewed - Gallbladder ultrasound shows distended gallbladder with multiple stones. No gallbladder wall thickening. Common bile duct and intrahepatic ducts normal caliber with no filling defects. The right kidney shows right renal pelvis is dilated 9 mm without stones or masses. - Consults Dr. Valadez Time consulted: 14:50 Consulted provider: will come to ER Discharge - Discharge Clinical Impression: Cholelithiasis Qualifiers: Cholelithiasis location: gallbladder Cholecystitis presence: without cholecystitis Biliary obstruction: without biliary obstruction Qualified Cod e(s): K80.20 - Calculus of gallbladder without cholecystitis without obstruction GERD (gastroesophageal reflux disease) Qualifiers: Esophagitis presence: esophagitis presence not specified Qualified Code(s): K21 .9 - Gastro-esophageal reflux disease without esophagitis Condition: Stable Disposition: HOME, SELF-CARE Additional Instructions: Reflux Disease (GERD): Gastro-Esophageal Reflux Disease (GERD) is caused by stomach acid refluxing back up into the esophagus. The valve at the end of the esophagus may be weak. This is common in persons with a hiatal hernia. GERD symptoms can include indigestion, chest pain, heartburn, or food "sticking." Certain foods, alcohol, and aspirin can make GERD worse. Treatment depends on the severity. Usually, antacids or acid-suppressing medicines are used. When the esophagus is acutely inflamed, the physician will often prescribe membrane-protective drugs such as Carafate. Some patients benefit from medication such as Reglan that tightens the valve at the top of the stomach. Avoid those foods that bring on your symptoms. For many people, these foods are coffee, chocolate, onions, garlic, and carbonated drinks. Don't use alcohol, aspirin, caffeine, or tobacco. Don't eat late at night -- within 4 hours of bedtime. Don't over-eat. If necessary, elevate the head of your bed about 4 inches so that stomach acid will not roll up into your esophagus. Call the doctor if you develop severe chest pain, inability to swallow fluids, fever, or worsening symptoms. Gallbladder Disease: Your evaluation shows evidence of gallbladder disease. The gallbladder is a pouch under the liver which stores bile. Stones, infection, or irritation of the gallbladder cause attacks of pain. Certain foods -- fats in particular -- may provoke attacks. The usual treatment for gallbladder disease is surgical removal of the gallbladder -- called a cholecystectomy. You will be referred to a physician qualified to advise you on the best treatment for your problem. Hospitalization is not necessary. Take clear liquids only until you are painfree. After that, you should stay on a low-fat diet, with frequent SMALL meals. Call the doctor or return at once if you develop severe pain, repeated vomiting, fever, or jaundice (a yellow color in the skin and whites of the eyes). Take Prilosec OTC twice daily for the next week. After that, take it once daily. Eat a bland diet and avoid eating large meals. Avoid eating close to bedtime. Take antacids between meals and at bedtime for the next several days. Follow-up with [place] [facility] to schedule removal of your gallbladder. RETURN TO THE EMERGENCY ROOM IF ANY NEW OR WORSENING SYMPTOMS. Referrals: [facility] [Provider Group] - Follow up in 1 week I personally performed the services described in the documentation, reviewed and edited the documentation which was dictated to the scribe in my presence, and it accurately records my words and actions.
--- NOTE | 2020-05-14 13:59 | RADIOLOGY REPORT (SQ) ---
EXAM DESCRIPTION: U/S ABDOMEN LIMITED W/O DOP IMAGES COMPLETED DATE/TIME: 05/14/2020 1:31 pm REASON FOR STUDY: RUQ pain COMPARISON: None. TECHNIQUE: Dynamic and static grayscale images acquired of the abdomen and recorded on PACS. Additio nal selected color Doppler and spectral images recorded. LIMITATIONS: None. FINDINGS: PANCREAS: No masses. Visualized pancreatic duct normal caliber. LIVER: Fatty liver. 18 cm. No masses. LIVER VASCULATURE: Normal directional flow of the main portal vein and hepatic veins. GALLBLADDER: Dilated gallbladder with multiple stones. No gallbladder wall thickening. ULTRASOUND-DETECTED SAHU'S SIGN: Negative. INTRAHEPATIC DUCTS AND COMMON DUCT: CBD and intrahepatic ducts normal caliber. No filling defects. INFERIOR VENA CAVA: Normal flow. AORTA: No aneurysm. RIGHT KIDNEY: Right renal pelvis is dilated 9 mm. No stones. No masses. PERITONEAL AND RIGHT PLEURAL SPACE: No ascites or effusions. OTHER: No other significant findings. IMPRESSION: Cholelithiasis. Fatty liver. Mild hydronephrosis on the right. TECHNICAL DOCUMENTATION: JOB ID: [id number] [employer]- All Rights Reserved Reading location - IP/workstation name: [email or web address]
--- NOTE | 2020-05-14 16:09 | PDOC H&P ---
History of Present Illness Patient complains of: Epigastric pain with heartburn History of Present Illness: PRICILA HSU is a 30 year old female, healthy, with a history of episodic epigastric pain associated with heartburn nausea and vomiting for the past few months since her most recent delivery in January. The patient has undergone an ultrasound which demonstrates cholelithiasis without bowel wall thickening or fluid, her blood work is within normal limits except for a very slight elevated AST ALT. Currently, the pain has subsided but the patient is complaining of severe heartburn. Past Surgical History Past Surgical History: Reports: Tonsillectomy, Other - Lap for PCOS Social History Lives with: Family Smoking Status: Current Every Day Smoker Electronic Cigarette use?: No Family History Family History: Reviewed & Not Pertinent Parental Family History Reviewed: No Children Family History Reviewed: No Sibling(s) Family History Reviewed.: No Medication/Allergy Home Medications: Buprenorphine HCl [Subutex 2 mg Sl Tablet] 8 mg SL BID 01/13/20 Pnv No.95/Ferrous Fum/Folic AC [ Caplet] 1 tab PO DAILY 01/13/20 Ibuprofen [Motrin 800 mg Tablet] 800 mg PO Q8HP PRN #60 tablet 01/15/20 Allergies/Adverse Reactions: cefaclor [From Ceclor] Allergy (Verified 05/14/20 11:31) Penicillins Allergy (Verified 05/14/20 11:31) Physical Exam Vital Signs: Temp Pulse Resp BP Pulse Ox 98.5 F 70 20 128/64 H 99 05/14/20 10:59 05/14/20 14:34 05/14/20 14:34 05/14/20 14:34 05/14/20 14:34 Intake & Output 05/13/20 05/14/20 05/15/20 06:59 06:59 06:59 Weight 95.5 kg General appearance: PRESENT: no acute distress, obese Head exam: PRESENT: atraumatic Eye exam: PRESENT: EOMI Mouth exam: PRESENT: moist, neck supple Neck exam: PRESENT: full ROM Respiratory exam: PRESENT: clear to auscultation [place] Cardiovascular exam: PRESENT: RRR GI/Abdominal exam: PRESENT: Mayers's sign - Negative, normal bowel sounds, soft, other - Abdomen not distended, not right upper quadrant tenderness, no surgical scars, no masses appreciated, presence of tenderness in the epigastrium Rectal exam: PRESENT: deferred Extremities exam: PRESENT: full ROM Musculoskeletal exam: PRESENT: full ROM Neurological exam: PRESENT: alert, awake, oriented to time, oriented to situation, CN II-XII grossly intact, normal gait Skin exam: PRESENT: warm Results Laboratory Results: 05/14/20 11:25 05/14/20 11:25 05/14/20 05/14/20 05/14/20 11:25 11:25 11:25 WBC 10.8 H RBC 4.44 Hgb 13.5 Hct 37.6 MCV 85 MCH 30.5 MCHC 35.9 RDW 13.7 Plt Count 180 Seg Neutrophils % 74.9 Sodium 139.5 Potassium 4.0 Chloride 105 Carbon Dioxide 25 Anion Gap 10 BUN 12 Creatinine 0.67 Est GFR ( Amer) > 60 Glucose 104 Calcium 9.7 Total Bilirubin 0.4 AST 128 H Alkaline Phosphatase 72 Total Protein 7.0 Albumin 4.5 Lipase 52.4 Urine Color YELLOW Urine Appearance SLIGHTLY-CLOUDY Urine pH 6.0 Ur Specific [place] 1.024 Urine Protein NEGATIVE Urine Glucose (UA) NEGATIVE Urine Ketones NEGATIVE Urine Blood NEGATIVE Urine Nitrite NEGATIVE Ur Leukocyte Esterase TRACE H Urine WBC (Auto) 3 Urine RBC (Auto) 4 Impressions: Abdomen Ultrasound 05/14/20 11:01 IMPRESSION: Cholelithiasis. Fatty liver. Mild hydronephrosis on the right. Assessment & Plan - Diagnosis (1) Heartburn Is this a current diagnosis for this admission?: Yes (2) Epigastric pain Is this a current diagnosis for this admission?: Yes (3) Cholelithiasis Qualifiers: Cholelithiasis location: gallbladder Cholecystitis presence: without cholecystitis Biliary obstruction: without biliary obstruction Qualified Code(s): K80.20 - Calculus of gallbladder without cholecystitis without obstruction Is this a current diagnosis for this admission?: Yes - Time Anticipated Discharge Disposition: Home, Self Care Anticipated Discharge Timeframe: now - Plan Summary Plan Summary: Assessment: Epigastric pain with heartburn Physical exam demonstrates exquisite localized epigastric pain Ultrasound of the gallbladder is significant for cholelithiasis with normal- appearing gallbladder, no wall thickening, normal size intrahepatic bile ducts Blood work demonstrates a very slight elevation of the AST ALT By history, symptoms, and physical exam I believe the patient is suffering from GERD, most likely secondary to her recent Plan: I recommend the patient to start on Nexium or Protonix 1 tab by mouth twice a day Maalox 1 tablespoon or x1 p.o. by mouth as needed heartburn Initiate diet modifications including no caffeinated beverages, no alcohol, tobacco smoking, chocolate, tomatoes, or ingestion of any acid the fluids Continue this therapy for at least 2 months If the symptoms do not calin or improve, consideration should be given to perform a laparoscopic cholecystectomy Patient encouraged to return to the surgical office in 2 to 3 months if the symptoms do not improve The patient should follow-up with her primary care physician for continuation of the anti-GERD therapy
[2020-05-14 16:42] VITALS: BP 115/65
== END 2020-05-14 16:44 | disposition home or self-care (01) ==
LOC: ER 10:26
DX: K80.20 Calculus of gallbladder without cholecystitis without obstruction (principal); K21.9 Gastro-esophageal reflux disease without esophagitis; N13.30 Unspecified hydronephrosis; K76.0 Fatty (change of) liver, not elsewhere classified; E28.2 Polycystic ovarian syndrome; R11.0 Nausea; F11.20 Opioid dependence, uncomplicated; F17.210 Nicotine dependence, cigarettes, uncomplicated; Z88.1 Allergy status to other antibiotic agents; Z88.0 Allergy status to penicillin
CPT/HCPCS: 99285; 96375; 96374; 36415; 87086; 83690; 85025; 81025; 80053; 81001; 76705; J3490 ×2; J1885; J2405